=== PATIENT | female | born 1990 | race Caucasian/White ===

== ENCOUNTER 2018-01-03 21:32 | Emergency (ER) | payer OTHER, BC ==
[~2018-01-03] VITALS: Ht 167.6 cm; Wt 99.8 kg
[2018-01-03] MEDS ORDERED: MEDR150D6 (21:51)
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
[2018-01-03 23:27] VITALS: BP 133/90
--- NOTE | 2018-01-04 07:28 | Diagnostic Imaging Report ---
INDICATION: Knee pain. Three views of the left knee were obtained. FINDINGS: The alignment is normal. There is no fracture or dislocation. Soft tissues are unremarkable. IMPRESSION: No acute fracture or dislocation Dictated by: Dictated on workstation # [id number]
== END 2018-01-03 23:27 | disposition other institution (70) ==
LOC: ER 21:36
DX: S80.212A Abrasion, left knee, initial encounter (principal); R40.2142 Coma scale, eyes open, spontaneous, at arrival to emergency department; R40.2252 Coma scale, best verbal response, oriented, at arrival to emergency department; R40.2362 Coma scale, best motor response, obeys commands, at arrival to emergency department; V28.5XXA Motorcycle passenger injured in noncollision transport accident in traffic accident, initial encounter
CPT/HCPCS: 73562

== ENCOUNTER 2018-01-13 12:38 | Emergency (ER) | payer OTHER, BC ==
[~2018-01-13] VITALS: Ht 167.6 cm; Wt 99.8 kg
[~2018-01-13 12:38] MED LIST: MEDR150D6
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
[2018-01-13 13:34] VITALS: BP 150/90
--- NOTE | 2018-01-13 13:44 | Diagnostic Imaging Report ---
INDICATION: Left leg injury, pain. COMPARISON: None. FINDINGS: Two views of left tibia-fibula demonstrate no fracture or dislocation. Articular surface normal. IMPRESSION: Negative left tibia-fibula. Dictated by: Dictated on workstation # [id number]
--- NOTE | 2018-01-13 13:47 | Diagnostic Imaging Report ---
INDICATION: Left ankle injury COMPARISON: None. FINDINGS: 3 views of the left ankle demonstrate no fracture or dislocation. Articular surfaces are normal. No foreign body. IMPRESSION: Negative left ankle. Dictated by: Dictated on workstation # [id number]
== END 2018-01-13 13:34 | disposition home or self-care (01) ==
LOC: EDUNIT# 12:38 → ER 12:42
DX: S80.12XA Contusion of left lower leg, initial encounter (principal); R20.2 Paresthesia of skin; X50.0XXA Overexertion from strenuous movement or load, initial encounter
CPT/HCPCS: 73590; 73610